=== PATIENT | female | born 1980 | race Caucasian/White ===

== ENCOUNTER 2016-08-26 23:40 | Emergency (ER) | payer SELFPAY ==
[~2016-08-26] VITALS: Ht 170.2 cm; Wt 73.5 kg
[2016-08-27] MEDS ORDERED: OMEPRAZOLE40 M1 ORAL (00:19)
[2016-08-27 00:29] VITALS: BP 135/80
[2016-08-27] MEDS ORDERED: HYDROmorphone 1mg/ml Carpuject IM ONE (00:45)
[2016-08-27] MEDS ORDERED: HYDROCODON-ACE1 EA15 ORAL (01:00)
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
[2016-08-27 01:05] VITALS: BP 135/80
== END 2016-08-27 01:05 | disposition home or self-care (01) ==
LOC: EMR 08-27 00:37
DX: M54.42 Lumbago with sciatica, left side (principal); Z88.6 Allergy status to analgesic agent
CPT/HCPCS: 96372; 99283; J1170